=== PATIENT | male | born 1955 | race Caucasian/White ===

== ENCOUNTER → 2021-04-16 07:48 | Outpatient (CLI) | payer OTHER, SELFPAY ==
--- NOTE | ~2021-04-16 | US_ITS ---
EXAMINATION: US right upper quadrant DATE: 04/16/2021 08:24 INDICATION: Gastroesophageal reflux disease TECHNIQUE: Multiple grayscale and Doppler ultrasound images of the abdomen were obtained. COMPARISON: None available FINDINGS: Bowel gas obscures visualization of the pancreas. The visualized portions of the pancreas a re unremarkable. There is a 7 mm cyst of the left hepatic lobe. The liver demonstrates increased echo genicity, heterogenous echotexture, and decreased through transmission. No surface nodularity. Normal hepatopetal flow in the main portal vein. A stone is present in the nondistended gallbladder. There is no pericholecystic fluid or gallbladder wall thickening. The normal common bile duct measures 5 mm . There was no sonographic Sosa sign. IMPRESSION: 1. Diffuse hepatic steatosis. 2. Cholelithiasis without evidence of cholecystitis. Reviewed, dictated and finalized at location A.
== END ==
PROVIDERS: PCP Family Medicine; Visit Provider Family Medicine
DX: K21.9 Gastro-esophageal reflux disease without esophagitis (principal); K76.0 Fatty (change of) liver, not elsewhere classified; K80.20 Calculus of gallbladder without cholecystitis without obstruction
CPT/HCPCS: 76705